=== PATIENT | male | born 1985 | race Caucasian/White ===

== ENCOUNTER → 2016-12-25 | Outpatient (CLI) | payer OTHER ==
[~2016-12-25] MED LIST: ALBU2.5I; ALBU2.5I INH; FLOV44AE IN; IPRA0.02 NEB; MONT10TA2 PO; PRED20 PO; WAL-10TA2 PO; [UNRECOGNIZED DRUG - CODE] PO
== END ==
LOC: PLAB 12:37
PROVIDERS: ATTEND Internal Medicine Allergy & Immunology
DX: J45.30 Mild persistent asthma, uncomplicated (principal)
CPT/HCPCS: 80198

== ENCOUNTER → 2017-04-02 | Outpatient (CLI) | payer OTHER ==
[2017-04-02 13:34] LABS: AUTOMATED NEUTROPHIL # 4.5 TH/MM3 (1.8-7.7); BASOPHIL # 0.1 TH/MM3 (0-0.2); BASOPHIL % 1.1 % (0.0-2.0); EOSINOPHIL # 0.3 TH/MM3 (0-0.4); EOSINOPHIL % 5.2 % (0.0-4.0); HEMATOCRIT 40.6 % (39.0-51.0); HEMO FLAGS DIFF FINAL; LYMPH % 18.5 % (9.0-44.0); LYMPHOCYTE # 1.2 TH/MM3 (1.0-4.8); MEAN CELL VOLUME 86.7 FL (80.0-100.0); MEAN CORPUSCULAR HEMOGLOBIN 28.9 PG (27.0-34.0); MEAN CORPUSCULAR HGB CONC 33.3 % (32.0-36.0); NEUT % 67.2 % (16.0-70.0); PLATELET COUNT 215 TH/MM3 (150-450); RED BLOOD COUNT 4.69 MIL/MM3 (4.50-5.90); RED CELL DISTRIBUTION WIDTH 13.8 % (11.6-17.2); WHITE BLOOD COUNT 6.7 TH/MM3 (4.0-11.0)
[2017-04-02 13:47] LABS: ANION GAP 8 MEQ/L (5-15); AST (GOT) 15 U/L (15-37); BICARBONATE 27.5 MEQ/L (21.0-32.0); BLOOD UREA NITROGEN 13 MG/DL (7-18); CHLORIDE 98 MEQ/L (98-107); GLOMERULAR FILTRATION RATE 80 ML/MIN (>89); GLUCOSE,FASTING 81 MG/DL (74-99); POTASSIUM 3.8 MEQ/L (3.5-5.1); SODIUM (NA) 133 MEQ/L (136-145)
[2017-04-02 13:59] LABS: ALKALINE PHOSPHATASE 72 U/L (45-117); ALT (GPT) 33 U/L (12-78); HDL CHOLESTEROL 44.8 MG/DL (40.0-60.0); LDL CHOLESTEROL 94 MG/DL (0-99); TOTAL BILIRUBIN ADULT 0.4 MG/DL (0.2-1.0)
[2017-04-02 15:48] LABS: HEMOGLOBIN A1a 0.8 %; HEMOGLOBIN A1b 0.7 %; HEMOGLOBIN F 0.9 %; HEMOGLOBIN LA1C 1.8 %; HEMOGLOBIN P3 3.2 %
== END ==
LOC: PLAB 11:30
PROVIDERS: ATTEND Internal Medicine
DX: Z00.00 Encounter for general adult medical examination without abnormal findings (principal)
CPT/HCPCS: 36415; 80053; 80061; 83036; 84443; 85025